=== PATIENT | male | born 1990 | race American Indian/Alaskan Native ===

== ENCOUNTER 2019-10-02 13:34 | Emergency (ER) | payer MEDICAID ==
[2019-10-02 13:53] VITALS: BP 126/79
--- NOTE | 2019-10-02 15:20 | XRay Report ---
CHEST 1 VIEW 10/02/2019 2:15 PM INDICATION / CLINICAL INFORMATION: cough. COMPARISON: None available. FINDINGS: SUPPORT DEVICES: None. HEART / MEDIASTINUM: No significant abnormality. LUNGS / PLEURA: No significant pulmonary or pleural abnormality. No pneumothorax. ADDITIONAL FINDINGS: No significant additional findings. IMPRESSION: 1. No acute findings. Signer Name: Mohamud Leslie MD Signed: 10/02/2019 3:16 PM Workstation Name: [id number]
--- NOTE | 2019-10-02 15:55 | Emergency Department Report ---
ED General Adult HPI - General Chief complaint: Psych Stated complaint: FLU SX Time Seen by Provider: 10/02/19 14:06 Source: patient, EMS Mode of arrival: Stretcher Limitations: No Limitations - History of Present Illness Initial comments: Patient is a 29-year-old F [place] male with a no significant past medical history states he has had cough congestion for the last several days. Patient states he has some sinus pressure and when he coughs he has some yellowish sputum. States his nasal drainage is yellow as well. Besides this the patient also used methamphetamines all yesterday as well as this morning any called paramedics stating that he felt strange. He is denying any nausea vomiting diarrhea current fevers or chills Severity scale (0 -10): 0 - Related Data Previous Rx's Medication Instructions Recorded Last Taken Type Amoxicillin/Potassium Clav 1 each PO BID #14 tablet 10/02/19 Unknown Rx [Augmentin 875-125 Tablet] Fluticasone [Flonase] 1 spray NS QDAY #1 bottle 10/02/19 Unknown Rx Allergies Allergy/AdvReac Type Severity Reaction Status Date / Time No Known Allergies Allergy Verified 10/02/19 13:53 ED Review of Systems ROS: Stated complaint: FLU SX Other details as noted in HPI Comment: All other systems reviewed and negative ED Past Medical Hx - Past Medical History Previous Medical History?: Yes Hx Psychiatric Treatment: Yes (Schizo) - Surgical History Past Surgical History?: No - Social History Smoking Status: Unknown if ever smoked Substance Use Type: Methamphetamines - Medications Home Medications: Home Medications Medication Instructions Recorded Confirmed Last Taken Type Amoxicillin/Potassium Clav 1 each PO BID #14 tablet 10/02/19 Unknown Rx [Augmentin 875-125 Tablet] Fluticasone [Flonase] 1 spray NS QDAY #1 bottle 10/02/19 Unknown Rx ED Physical Exam - General Limitations: No Limitations General appearance: alert, in no apparent distress - Head Head exam: Present: atraumatic, normocephalic - Eye Eye exam: Present: normal appearance, PERRL, EOMI - ENT ENT exam: Present: normal orophraynx, mucous membranes moist, other (mild frontal sinus tenderness) - Neck Neck exam: Present: normal inspection - Respiratory Respiratory exam: Present: normal lung sounds bilaterally. Absent: respiratory distress, wheezes, rales, rhonchi - Cardiovascular Cardiovascular Exam: Present: regular rate, normal rhythm, normal heart sounds. Absent: systolic murmur, diastolic murmur, rubs, gallop - GI/Abdominal GI/Abdominal exam: Present: soft, normal bowel sounds. Absent: distended, tenderness, guarding, rebound - Rectal Rectal exam: Present: deferred - Extremities Exam Extremities exam: Present: normal inspection - Back Exam Back exam: Present: normal inspection - Neurological Exam Neurological exam: Present: alert, oriented X3 - Psychiatric Psychiatric exam: Present: normal affect, normal mood - Skin Skin exam: Present: warm, dry, intact, normal color. Absent: rash ED Course Vital Signs 10/02/19 13:47 Temperature 98.4 F Pulse Rate 90 Respiratory 12 Rate Blood Pressure 126/79 [Right] O2 Sat by Pulse 98 Oximetry ED Medical Decision Making - Lab Data Lab Results 10/02/19 Range/Units 15:08 Influenza A (Rapid) Negative (Negative) Influenza B (Rapid) Negative (Negative) - Radiology Data [facility] [address] [place] [address] XRay Report Signed Patient: JUAN MIGUEL STEVENSON MR#: [id number] : 1990 Acct:[id number] Age/Sex: 29 / M ADM Date: 10/02/19 Loc: ED Attending Dr: Ordering Physician: MADELINE CHRISTOPHER MD Date of Service: 10/02/19 Procedure(s): XR chest 1V ap Accession Number(s): [id number] cc: MADELINE CHRISTOPHER MD Fluoro Time In Minutes: CHEST 1 VIEW 10/02/2019 2:15 PM INDICATION / CLINICAL INFORMATION: cough. COMPARISON: None available. FINDINGS: SUPPORT DEVICES: None. HEART / MEDIASTINUM: No significant abnormality. LUNGS / PLEURA: No significant pulmonary or pleural abnormality. No pneumothorax. ADDITIONAL FINDINGS: No significant additional findings. IMPRESSION: 1. No acute findings. Signer Name: Mohamud Leslie MD Signed: 10/02/2019 3:16 PM Workstation Name: [id number] - Medical Decision Making Patient's chest x-ray is within normal limits and his flu test was negative. We will treat the patient for acute sinusitis. Regarding the patient is strange affect from his methamphetamine abuse patient was given some outpatient resources for substance abuse programs but he is stable for discharge at this time. Critical care attestation.: If time is entered above; I have spent that time in minutes in the direct care of this critically ill patient, excluding procedure time. ED Disposition Clinical Impression: Acute sinusitis, Methamphetamine abuse Disposition: TO HOME OR SELFCARE Is pt being admited?: No Does the pt Need Aspirin: No Condition: Stable Instructions: Methamphetamine Abuse (ED), Acute Bacterial Rhinosinusitis (ED) Referrals: PRIMARY CARE, [Primary Care Provider] - 3-5 Days Time of Disposition: 16:01
== END 2019-10-02 16:39 | disposition home or self-care (01) ==
LOC: ED 13:34
DX: J01.90 Acute sinusitis, unspecified (principal); F15.10 Other stimulant abuse, uncomplicated; F20.9 Schizophrenia, unspecified
CPT/HCPCS: 71045; 87400; 99284

== ENCOUNTER 2020-12-24 01:39 | Emergency (ER) | payer MEDICAID ==
[2020-12-24 02:19] VITALS: BP 112/54
== END 2020-12-24 07:36 ==
LOC: ED 01:39
DX: D57.00 Hb-SS disease with crisis, unspecified (principal); Z53.21 Procedure and treatment not carried out due to patient leaving prior to being seen by health care provider
CPT/HCPCS: 36415